=== PATIENT | female | born 1935 | race Asian ===

== ENCOUNTER → 2016-11-14 | Outpatient (CLI) | payer MEDICARE, OTHER ==
[~2016-11-14] MED LIST: CARDI-OMEGA1000 MG PO; CELEBREX 200MG200 MG PO; LIPITOR 10MG10 MG PO; LIPITOR20 MG PO; NEXIUM 40MG40 MG PO; NEXIUM PO; NORCO 325 MG-51 TAB PO; hormone
== END ==
LOC: MC.RAD 10:35
DX: Z12.31 Encounter for screening mammogram for malignant neoplasm of breast (principal)

== ENCOUNTER → 2017-10-24 | Outpatient (CLI) | payer MEDICARE, OTHER | LOC: COL.RAD 09:14 | DX: E04.2 Nontoxic multinodular goiter (principal) ==

== ENCOUNTER → 2018-01-08 | Outpatient (CLI) | payer MEDICARE, OTHER | LOC: MC.RAD 11:13 | DX: Z12.31 Encounter for screening mammogram for malignant neoplasm of breast (principal) ==

== ENCOUNTER → 2019-01-09 | Outpatient (CLI) | payer MEDICARE, OTHER | LOC: MC.RAD 09:20 | DX: Z12.31 Encounter for screening mammogram for malignant neoplasm of breast (principal) ==

== ENCOUNTER → 2020-02-10 | Outpatient (CLI) | payer MEDICARE, OTHER | LOC: MC.RAD 13:17 | DX: Z12.31 Encounter for screening mammogram for malignant neoplasm of breast (principal) ==

== ENCOUNTER → 2021-02-18 | Outpatient (CLI) | payer MEDICARE, OTHER | LOC: MC.RAD 12:43 | DX: Z12.31 Encounter for screening mammogram for malignant neoplasm of breast (principal) ==

== ENCOUNTER → 2022-03-16 | Outpatient (CLI) | payer MEDICARE, OTHER | LOC: MC.RAD 14:50 | DX: Z12.31 Encounter for screening mammogram for malignant neoplasm of breast (principal) ==